=== PATIENT | female | born 1990 | race African-American/Black ===

== ENCOUNTER 2024-04-20 11:30 | Emergency (ER) | payer SELFPAY ==
[~2024-04-20] VITALS: Ht 170.2 cm; Wt 106.6 kg
[2024-04-20 11:39] VITALS: BP 140/92; TEMP 36.8; O2SAT 98
[2024-04-20 11:55] VITALS: PULSE 90; RESP 18; O2SAT 99
[2024-04-20 12:48] LABS: BASOPHILS % 0.6 % (0.0-2.0); EOSINOPHILS % 1.2 % (0.0-5.0); HEMATOCRIT. 42.7 % (36.0-48.0); HEMOGLOBIN. 13.8 g/dL (12.0-16.0); LYMPHOCYTES % 29.5 % (20.0-50.0); MEAN CORPUSCULAR HEMOGLOBIN 30.7 pg (28.0-32.0); MEAN CORPUSCULAR HGB CONC 32.3 g/dL (31.0-37.0); MONOCYTES % 5.4 % (2.0-8.0); NEUTROPHILS % 63.3 % (40.0-76.0); PLATELET 340 x1000/uL (130-400); RED BLOOD CELL COUNT 4.49 mill/uL (4.2-5.4); RED CELL DISTRIBUTION WIDTH 13.6 % (11.6-14.6); WHITE BLOOD COUNT 11.3 x1000/uL (4.5-11.0)
[2024-04-20 12:51] LABS: CHLORIDE 106 mEq/L (98-107); POTASSIUM 4.5 mEq/L (3.5-5.1); SODIUM 141 mEq/L (136-145)
[2024-04-20 12:52] LABS: CARBON DIOXIDE 28 mEq/L (21-32)
[2024-04-20 12:57] LABS: CREATININE 0.9 mg/dL (0.6-1.0); GLUCOSE 113 mg/dL (70-105); UREA NITROGEN BLOOD 12 mg/dL (9-23)
[2024-04-20 14:34] LABS: CLARITY URINE CLEAR (CLEAR); COLOR URINE YELLOW (YELLOW); GLUCOSE URINE NEGATIVE (NEGATIVE); KETONES URINE NEGATIVE (NEGATIVE); LEUKOCYTE ESTERASE URINE 2+ (NEGATIVE); NITRITE URINE NEGATIVE (NEGATIVE); OCCULT BLOOD URINE 2+ (NEGATIVE); PH URINE 5.5 (4.5-8.0); PROTEIN URINE NEGATIVE (NEGATIVE); SPECIFIC GRAVITY URINE 1.026 (1.005-1.030); UROBILINOGEN URINE 0.2 E.U./dL (0.2-1.0)
[2024-04-20 15:18] LABS: SQUAMOUS EPITHELIAL CELL URINE 3+ /lpf (RARE/1+)
[2024-04-20 15:19] LABS: BACTERIA URINE 1+; TRICHOMONAS URINE 3+
[2024-04-20] MEDS ORDERED: ACET-2708 PO (15:21)
[2024-04-20] MEDS ORDERED: SULF1TAB48 MT (15:21)
[2024-04-20] MEDS ORDERED: PHEN-910 MT (15:21)
[2024-04-23] MEDS ORDERED: METR-167 MT (14:30)
== END 2024-04-20 15:30 | disposition home or self-care (01) ==
LOC: ER 12:28
DX: R10.30 Lower abdominal pain, unspecified (principal); Z79.899 Other long term (current) drug therapy
CPT/HCPCS: 36415; 80048; 81003; 85025; 99283

== ENCOUNTER 2024-07-27 13:43 | Emergency (ER) | payer BC ==
[~2024-07-27] VITALS: Ht 177.8 cm; Wt 92.0 kg
[~2024-07-27 13:43] MED LIST: ACET-2708 PO; METR-167 MT; PHEN-910 MT; SULF1TAB48 MT
[2024-07-27 14:03] VITALS: O2SAT 100
[2024-07-27 15:47] LABS: BASOPHILS % 0.8 % (0.0-2.0); EOSINOPHILS % 1.2 % (0.0-5.0); HEMATOCRIT. 40.2 % (36.0-48.0); HEMOGLOBIN. 13.8 g/dL (12.0-16.0); LYMPHOCYTES % 28.7 % (20.0-50.0); MEAN CORPUSCULAR HEMOGLOBIN 32.4 pg (28.0-32.0); MEAN CORPUSCULAR HGB CONC 34.3 g/dL (31.0-37.0); MEAN CORPUSCULAR VOLUME 94.3 fL (81.0-99.0); MEAN PLATELET VOLUME 9.2 fl (7.4-10.4); MONOCYTES % 6.3 % (2.0-8.0); PLATELET 312 x1000/uL (130-400); RED BLOOD CELL COUNT 4.26 mill/uL (4.2-5.4); RED CELL DISTRIBUTION WIDTH 13.2 % (11.6-14.6); WHITE BLOOD COUNT 9.7 x1000/uL (4.5-11.0)
[2024-07-27 15:51] LABS: CHLORIDE 108 mEq/L (98-107); SODIUM 142 mEq/L (136-145)
[2024-07-27 15:52] LABS: CALCIUM 9.3 mg/dL (8.7-10.4); CARBON DIOXIDE 25 mEq/L (21-32)
[2024-07-27 15:57] LABS: CREATININE 0.8 mg/dL (0.6-1.0); GLUCOSE 97 mg/dL (70-105); UREA NITROGEN BLOOD 9 mg/dL (9-23)
[2024-07-27 15:58] LABS: CLARITY URINE CLOUDY (CLEAR); COLOR URINE YELLOW (YELLOW); GLUCOSE URINE NEGATIVE (NEGATIVE); KETONES URINE TRACE (NEGATIVE); LEUKOCYTE ESTERASE URINE 2+ (NEGATIVE); NITRITE URINE NEGATIVE (NEGATIVE); OCCULT BLOOD URINE TRACE (NEGATIVE); PROTEIN URINE NEGATIVE (NEGATIVE); SPECIFIC GRAVITY URINE 1.026 (1.005-1.030); UROBILINOGEN URINE 0.2 E.U./dL (0.2-1.0)
[2024-07-27 16:12] LABS: BACTERIA URINE 2+; SQUAMOUS EPITHELIAL CELL URINE 1+ /lpf (RARE/1+)
[2024-07-27] MEDS ORDERED: MECL-299 MT (16:17)
[2024-07-27] MEDS ORDERED: NAPR-681 MT (16:17)
[2024-07-27] MEDS ORDERED: NITR100C MT (16:17)
[2024-07-27 16:28] VITALS: BP 140/87; PULSE 89; RESP 16; TEMP 36.7; O2SAT 100
== END 2024-07-27 16:33 | disposition home or self-care (01) ==
LOC: ER 13:51
DX: N39.0 Urinary tract infection, site not specified (principal); R42 Dizziness and giddiness; R51.9 Headache, unspecified; Z79.899 Other long term (current) drug therapy
CPT/HCPCS: 36415; 80048; 81003; 85025; 99283

== ENCOUNTER 2024-11-02 13:21 | Emergency (ER) | payer BC ==
[~2024-11-02] VITALS: Ht 170.2 cm; Wt 113.0 kg
[~2024-11-02 13:21] MED LIST changes: +MECL-299 MT; +NAPR-681 MT; +NITR100C MT
[2024-11-02 13:31] VITALS: O2SAT 99
[2024-11-02] MEDS: IBUPROFEN 600MG TABLET PO ONE (16:09)
[2024-11-02] MEDS ORDERED: IBUP-1455 MT (16:25)
[2024-11-02] MEDS ORDERED: GUAI-450 MT (16:25)
[2024-11-02 17:00] VITALS: BP 135/76; PULSE 80; RESP 16; TEMP 36.9; O2SAT 98
== END 2024-11-02 17:09 | disposition home or self-care (01) ==
LOC: ER 13:21
DX: U07.1 COVID-19 (principal); Z79.899 Other long term (current) drug therapy
CPT/HCPCS: 87426; 99283

== ENCOUNTER 2024-11-03 14:52 | Emergency (ER) | payer BC ==
[~2024-11-03] VITALS: Ht 170.2 cm; Wt 113.0 kg
[~2024-11-03 14:52] MED LIST changes: +GUAI-450 MT; +IBUP-1455 MT
[2024-11-03 14:58] VITALS: O2SAT 99
[2024-11-03 15:06] VITALS: BP 138/88; PULSE 89; RESP 18; TEMP 36.9; O2SAT 98
== END 2024-11-03 15:26 | disposition home or self-care (01) ==
LOC: ER 14:52
DX: U07.1 COVID-19 (principal); Z79.899 Other long term (current) drug therapy
CPT/HCPCS: 99282